=== PATIENT | female | born 2000 | race African-American/Black ===

== ENCOUNTER 2020-07-01 17:52 | Inpatient (IN) | payer MEDICAID ==
[~2020-07-01] VITALS: Ht 165.1 cm; Wt 52.6 kg
[2020-07-01] MEDS ORDERED: HYDR-3831 PO (18:03)
[2020-07-01] MEDS ORDERED: HYDR-3422 PO (18:03)
[2020-07-01] MEDS ORDERED: FLUO10TA3 PO (18:03)
[2020-07-01 20:15] LABS: BASOPHILS % (AUTO) 0.7 % (0.0-2.0); EOSINOPHILS % (AUTO) 5.3 % (1.0-6.0); HEMATOCRIT 39.2 % (36-46); HEMOGLOBIN 12.8 g/dL (12.0-16.0); LYMPHOCYTES # (AUTO) 1.7 K/uL (1.0-4.8); LYMPHOCYTES % (AUTO) 27.8 % (22.0-44.0); MEAN CORPUSCULAR HEMOGLOBIN 30.8 pg (26.0-34.0); MEAN CORPUSCULAR HGB CONC 32.7 G/dL (31.0-37.0); MEAN CORPUSCULAR VOLUME 94 fL (80-100); MONOCYTES # (AUTO) 0.4 K/uL (0.1-1.0); MONOCYTES % (AUTO) 6.8 % (2.0-9.0); NEUTROPHILS # (AUTO) 3.6 K/uL (1.8-7.7); NEUTROPHILS % (AUTO) 59.4 % (40.0-70.0); PLATELET COUNT (AUTO) 223 K/uL (150-450); RED BLOOD CELL COUNT(AUTO) 4.16 MIL/uL (4.00-5.20); RED CELL DISTRIBUTION WIDTH 13.6 % (11.5-14.5)
[2020-07-01 20:24] LABS: ANION GAP 12 mmol/L (8-16); CARBON DIOXIDE 22 mmol/L (22-29); CHLORIDE 102 mmol/L (98-107); GLOMERULAR FILTR. RATE CALC > 60 mL/min (>60); GLUCOSE,RANDOM 88 mg/dL (70-110); SODIUM SERUM 136 mmol/L (136-145); UREA NITROGEN, BLOOD 7 mg/dL (7-18)
[2020-07-01 20:29] LABS: ALANINE AMINOTRANSFERASE 11 U/L (12-78); ALBUMIN 4.4 g/dL (3.4-5.0); ALKALINE PHOSPHATASE 66 U/L (46-116); ASPARTATE AMINOTRANSFERASE 13 U/L (15-37); BILIRUBIN,TOTAL 0.6 mg/dL (0.1-1.0); TOTAL PROTEIN, SERUM 8.4 g/dL (6.4-8.2)
[2020-07-01 21:16] LABS: COVID AG,FIA SOURCE NASOPHARYNGEAL
[2020-07-01] MEDS ORDERED: ZOLPIDEM TARTRATE 10 MG TABLET PO PRN (21:45)
[2020-07-01] MEDS ORDERED: HALOPERIDOL 5 MG TABLET PO PRN (21:45)
[2020-07-01] MEDS ORDERED: LORazepam 2 MG TABLET PO PRN (21:45)
[2020-07-02 00:15] VITALS: BP 136/90
[2020-07-02] MEDS ORDERED: INFLUENZA VIRUS VACCINE QVS 2020-21 (6MO+)/PF 60 MCG/0.5 ML SYRINGE IM ONE (04:00)
[2020-07-02] MEDS ORDERED: ALBUTEROL SULFATE HFA 90 MCG/PUFF 8 GM INHALER IH PRN (08:00)
[2020-07-02] MEDS ORDERED: IBUPROFEN 400 MG TABLET PO PRN (08:00)
[2020-07-02] MEDS ORDERED: LOPERAMIDE HCL 2 MG CAPSULE PO PRN (08:00)
[2020-07-02] MEDS ORDERED: MAG HYDROX/AL HYDROX/SIMETH ES 30 ML SUSPENSION UDCUP PO PRN (08:00)
[2020-07-02] MEDS ORDERED: ONDANSETRON HCL 4 MG TABLET PO PRN (08:00)
[2020-07-02] MEDS ORDERED: ACETAMINOPHEN 325 MG TABLET PO PRN (08:00)
[2020-07-02] MEDS ORDERED: GuaiFENesin/D-METHORPHAN [SUGAR-FREE] 200-20MG/10 ML SYRUP UDCUP PO PRN (08:00)
[2020-07-02] MEDS ORDERED: PETROLATUM,WHITE 28 GM JELLY TP PRN (08:00)
[2020-07-02] MEDS ORDERED: CloNIDine HCL 0.1 MG TABLET PO PRN (08:00)
[2020-07-02] MEDS ORDERED: MAGNESIUM HYDROXIDE SUSPENSION 30 ML UDCUP PO PRN (08:00)
[2020-07-02] MEDS ORDERED: NICOTINE 14 MG/24 HOUR PATCH TD PRN (08:00)
[2020-07-02] MEDS ORDERED: DOCUSATE SODIUM 100 MG CAPSULE PO PRN (08:00)
[2020-07-02 08:18] LABS: CHOL/HDL RATIO 2.6 (3.9-5.7)
[2020-07-02 08:29] VITALS: BP 140/88
[2020-07-02] MEDS: FLUoxetine HCL 20 MG CAPSULE PO SCH (14:54)
[2020-07-02 16:00] VITALS: BP 135/79
[2020-07-03 03:37] VITALS: BP 125/80
[2020-07-03 09:14] VITALS: BP 133/69
[2020-07-03] MEDS: FLUoxetine HCL 20 MG CAPSULE PO SCH (13:02)
[2020-07-03 16:31] VITALS: BP 134/88
[2020-07-04 08:00] VITALS: BP 123/75
[2020-07-04] MEDS: FLUoxetine HCL 20 MG CAPSULE PO SCH (09:54)
== END 2020-07-04 15:35 | disposition home or self-care (01) | DRG 751 ==
LOC: EMS 17:52 → 3EI 21:44
DX: F33.2 Major depressive disorder, recurrent severe without psychotic features (principal); R45.851 Suicidal ideations; E78.5 Hyperlipidemia, unspecified; E44.0 Moderate protein-calorie malnutrition; F41.9 Anxiety disorder, unspecified; R74.01 Elevation of levels of liver transaminase levels; Z23 Encounter for immunization; Z68.1 Body mass index [BMI] 19.9 or less, adult; Z20.828 Contact with and (suspected) exposure to other viral communicable diseases
CPT/HCPCS: 87426; 90686; G0480